=== PATIENT | female | born 1980 | race Caucasian/White ===

== ENCOUNTER → 2021-05-23 17:17 | Outpatient (CLI) | payer BC, SELFPAY ==
--- NOTE | 2021-05-23 17:50 | RAD_ITS ---
STUDY: X-RAY - UNILATERAL RIBS ( LEFT ) WITH CHEST REASON FOR EXAM: Female, 40 years old. LEFT SIDE RIB PAIN TECHNIQUE - RIBS: 2 view(s) of the ribs on 4 images. TECHNIQUE - CHEST: Single frontal view of the chest. COMPARISON: None. 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 Otherwise, normal visualized left ribs without a demonstrated fracture. FINDINGS - CHEST: The lungs are clear and deeply expanded. There is no demonstrated pleural abnormality. Normal size heart. Normal mediastinum and david. Normal visualized pulmonary arteries. Normal visualized aortic arch and descending thoracic aorta. Normal visualized thoracic spine. Normal visualized ribs, clavicles, and shoulders. There is no demonstrated abnormality of the visualized soft tissue structures of the upper abdomen. 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 Otherwise, normal x-ray examination of the left ribs. CHEST: Deep inspiratory effort. No acute cardiopulmonary disease. Electronically Signed: Jose Morelos MD at 9:45 EDT , Service support ,
== END ==
DX: R07.81 Pleurodynia (principal)
CPT/HCPCS: 71101